=== PATIENT | male | born 1990 | race African-American/Black ===

== ENCOUNTER 2018-12-08 01:39 | Inpatient (IN) | payer BC ==
--- NOTE | 2018-12-08 02:10 | ED ---
Altered Mental Status - HPI Summary HPI Summary: A 28 y/o male brought in by [facility] presents to [facility] with a chief complaint of hyponatremia and AMS today. 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 He says that this is the second time he could not keep his sodium level up. He says that he has not had this happen to him before this week , but it was reported that he had this happen 3 times this week. He reports EtOH use occasionally. He claims that he has been pretty healthy up until this happened. - History Of Current Complaint Chief Complaint: EDGeneral Stated Complaint: GENERAL ILLNESS PER EMS Time Seen by Provider: 12/08/18 01:44 Hx Obtained From: Patient, EMS Onset/Duration: Still Present Timing: Intermittent, Lasting Days Severity Initially: Mild Severity Currently: Mild Character: Confusion Aggravating Factor(s): Nothing Alleviating Factor(s): Nothing Associated Signs And Symptoms: Negative: Fever - Allergies/Home Medications Allergies/Adverse Reactions: Allergies Allergy/AdvReac Type Severity Reaction Status Date / Time peanut Allergy Severe Swelling Verified 12/08/18 03:46 Of Face,Lips,& Throat Home Medications: Home Medications NK [No Home Medications Reported] 12/08/18 [History Confirmed 12/08/18] PMH/Surg Hx/FS Hx/Imm Hx Infectious Disease History: No Infectious Disease History: Denies: Traveled Outside the [place] in Last 30 Days Review of Systems Negative: Fever Neurological: Other - positive: AMS All Other Systems Reviewed And Are Negative: Yes Physical Exam - Summary Physical Exam Summary: Constitutional: Well-developed, Well-nourished, Alert. (-) Distressed Skin: Warm, Dry HENT: Normocephalic; Atraumatic Eyes: Conjunctiva normal Neck: Musculoskeletal ROM normal neck. (-) JVD, (-) Stridor, (-) Tracheal deviation Cardio: Rhythm regular, rate normal, Heart sounds normal; Intact distal pulses; The pedal pulses are 2+ and symmetric. Radial pulses are 2+ and symmetric. (-) Murmur Pulmonary/Chest wall: Effort normal. (-) Respiratory distress, (-) Wheezes, (-) Rales Abd: Soft, (-) tenderness, (-) Distension, (-) Guarding, (-) Rebound Musculoskeletal: (-) Edema, some abrasions and contusions but no obvious deformities Lymph: (-) Cervical adenopathy Neuro: Sedated, conversive when arousable Psych: Mood and affect Normal Triage Information Reviewed: Yes Vital Signs On Initial Exam: Initial Vitals Temp Pulse Resp BP Pulse Ox 98.6 F 86 16 129/71 99 12/08/18 01:41 12/08/18 01:41 12/08/18 01:41 12/08/18 01:41 12/08/18 01:41 Vital Signs Reviewed: Yes Diagnostics - Vital Signs Vital Signs Temp Pulse Resp BP Pulse Ox 12/08/18 01:41 98.6 F 86 16 129/71 99 - Laboratory Result Diagrams: 12/08/18 06:28 12/08/18 06:28 Lab Statement: Any lab studies that have been ordered have been reviewed, and results considered in the medical decision making process. - EKG 01:41 Cardiac Rate: NL - 89 bpm EKG Rhythm: Sinus Rhythm Summary of EKG Findings: Normal sinus rhythm at 89 bpm, prolonged IL with 1st degree AV block, ST elevated V1 V2 V3 and V4, normal early repolarization. Altered Mental Statu Course/Dx - Course Course Of Treatment: A 28 y/o male brought in by [facility] presents to [facility] with a chief complaint of hyponatremia and AMS today. The physical exam revealed some abrasions and contusions but no obvious deformities,. Sedated, conversive when arousable. Chemistries, urines and toxicology obtained. Sodium of 120 at 01:59. EKG at 01:41 showed Normal sinus rhythm at 89 bpm, prolonged IL with 1st degree AV block, ST elevated V1 V2 V3 and V4, normal early repolarization. Discussed case with Dr. Gardner, hospitalist, who accepted the patient for admisison. The patient is agreeable with this plan. - Diagnoses Provider Diagnoses: Altered mental status, Hyponatremia - Provider Notifications Discussed Care Of Patient With: Ramesh Gardner Time Discussed With Above Provider: 04:25 Instructed by Provider To: Admit As Inpatient Discharge - Sign-Out/Discharge Documenting (check all that apply): Patient Departure - admit Patient Received Moderate/Deep Sedation with Procedure: No - Discharge Plan Condition: Fair Disposition: ADMITTED TO [facility] - Billing Disposition and Condition Condition: FAIR Disposition: Admitted to [facility] - Attestation Statements Document Initiated by Scribe: Yes Documenting Scribe: Michel Gonzalez Provider For Whom Scribe is Documenting (Include Credential): Mamie Munoz MD Scribe Attestation: I, Michel Gonzalez, scribed for Mamie Byrnes MD on 12/08/18 at 0750. Scribe Documentation Reviewed: Yes Provider Attestation: The documentation as recorded by the Michel laguna accurately reflects the service I personally performed and the decisions made by me, Mamie Byrnes MD Status of Scribe Document: Viewed
[2018-12-08 02:33] LABS: ALT 72 U/L (7-52); AST 134 U/L (13-39); Albumin 4.2 g/dL (3.2-5.2); Albumin/Globulin Ratio 1.2 (1-3); Alkaline Phosphatase 51 U/L (34-104); Anion Gap 8 mmol/L (2-11); BUN/Creatinine Ratio 13.7 (8-20); Blood Urea Nitrogen 10 mg/dL (6-24); CO2 Carbon Dioxide 25 mmol/L (22-32); Calcium 8.3 mg/dL (8.6-10.3); Chloride 87 mmol/L (101-111); EGFR African American 157.1 (>60); EGFR Non-African American 129.9 (>60); Globulin 3.5 g/dL (2-4); Glucose 127 mg/dL (70-100); Potassium 4.8 mmol/L (3.5-5.0); Sodium 120 mmol/L (135-145); Total Protein 7.7 g/dL (6.4-8.9)
[2018-12-08 03:37] LABS: Creatine Kinase 5393 U/L (10-223)
[2018-12-08 03:51] LABS: Urine Potassium Concentration 68.8 mmol/L
[2018-12-08 04:00] LABS: Alcohol < 10 mg/dL (<10)
[2018-12-08 04:15] LABS: TSH (Thyroid Stimulating Horm) 0.39 mcIU/mL (0.34-5.60)
[2018-12-08] MEDS ORDERED: NS 0.9% 1000 ML** 1,000 ML IV SCH (05:30)
[2018-12-08] MEDS ORDERED: Ondansetron INJ* 2 MG/ML VIAL IV PRN (07:04)
[2018-12-08 07:22] LABS: HDL Cholesterol 67.4 mg/dL
[2018-12-08 07:28] LABS: ABS Lymphocytes 0.8 10^3/ul (1.0-4.8); ABS Monocytes 1.1 10^3/ul (0-0.8); Hematocrit 36 % (42-52); Hemoglobin 12.5 g/dL (14.0-18.0); Lymphocyte % 7.6 %; Mean Corpuscular HGB Conc 34 g/dL (31-36); Mean Corpuscular Hemoglobin 30 pg (27-31); Mean Corpuscular Volume 88 fL (80-94); Mean Platelet Volume 8.9 fL (7.4-10.4); Platelet Count 192 10^3/uL (150-450); Red Blood Count 4.16 10^6 /uL (4.18-5.48); Red Cell Distribution Width 12 % (10-15); White Blood Count 11.1 10^3/uL (3.5-10.8)
[2018-12-08 07:45] LABS: Anion Gap 10 mmol/L (2-11); BUN/Creatinine Ratio 11.6 (8-20); Blood Urea Nitrogen 8 mg/dL (6-24); CO2 Carbon Dioxide 23 mmol/L (22-32); Chloride 89 mmol/L (101-111); EGFR African American 167.7 (>60); EGFR Non-African American 138.6 (>60); Glucose 108 mg/dL (70-100); Potassium 4.3 mmol/L (3.5-5.0); Sodium 122 mmol/L (135-145)
[2018-12-08 08:15] LABS: Troponin I 0.01 ng/mL (<0.04)
--- NOTE | 2018-12-08 08:16 | HP ---
AMENDED REPORT NOW INCLUDES DATE OF ADMISSION ADMISSION HISTORY AND PHYSICAL: DATE OF ADMISSION: 12/08/18 CHIEF COMPLAINT: Altered mental status. HISTORY OF PRESENT ILLNESS: This is a 28-year-old male sent from [facility] for altered mental status and low sodium. The patient himself was sedated during my evaluation, so history was obtained by reviewing chart. Chart review suggests that the patient was brought from the [facility] with agitation and cramping and nausea and was disoriented, and he was moving around the bed having difficulty, at which point at [facility] they performed some labs and was noted to have hyponatremia. It is unclear, but the patient was given 2 mg dose of IV lorazepam and 2 times diazepam 5 mg IV with a total of 10 mg IV diazepam. After the labs showed the patient's sodium being low, the patient was sent to [facility] for further evaluation and treatment and correction of his sodium. According to records, this is his third time presenting with low sodium of 120, which they were unable to correct. PAST MEDICAL HISTORY: None documented. PAST SURGICAL HISTORY: None documented. HOME MEDICATIONS: There are no documented home medications. ALLERGIES: The patient is allergic to peanuts, which cause severe swelling of his face, lips, and throat. FAMILY HISTORY: Unable to obtain at this point. SOCIAL HISTORY: It is documented that the patient is a nonsmoker, only drinks alcohol occasionally and never uses any drugs. REVIEW OF SYSTEMS: Unable to obtain due to his mental status. PHYSICAL EXAMINATION GENERAL: The patient is arousable to painful stimuli and was requesting his Wright to be removed, but then he would immediately go back to sleep and would not talk further. The patient is arousable to deep palpation, but quickly goes back to sleep. He is oriented to person and thinks that we are at the end of October, but unable to determine where he was. VITAL SIGNS: In the ER, BP 119/65, heart rate 87, respiratory rate 14, saturating 97% on room air. HEAD AND NECK: Atraumatic and normocephalic. Bilateral pupils are reactive. Oral mucosa was dry. NECK: Supple. No jugular venous distention. LUNGS: Clear to auscultation bilaterally. No wheezing, rhonchi, or rales. HEART: S1 and S2. Regular rate and rhythm. ABDOMEN: Soft, nontender, and nondistended. EXTREMITIES: No cyanosis, clubbing, or edema. NEUROLOGIC: The patient was moving all 4 extremities with painful stimuli, suggesting he has 5/5 strength and good sensation. LABORATORY DATA: The patient had low sodium of 120, chloride also decreased at 87, glucose minimally elevated at 127. Serum osmolality was also low at 267. AST was elevated at 134, ALT elevated at 72, total creatine kinase was noted to be elevated at 5393. Urinalysis shows urine osmolality of 615 and urine sodium of 94. Serum alcohol level was undetectable. EKG shows sinus rhythm at 89 beats per minute with tall T waves; however, the patient's potassium was still noted to be within normal limits. IMPRESSION AND PLAN: This is a 28-year-old gentleman who came in with altered mental status, was noted to have low sodium of 120 of unclear etiology and also noted to have elevated CPK suggestive of rhabdomyolysis. 1. Altered mental status, unclear etiology. Although the current mentation difference might be related to the heavy dose of Ativan and diazepam that was given prior to transfer to [facility]. We will wait and see how the patient reacts after hydration. For now just start neuro checks. The CT head from [facility] was normal. 2. Hyponatremia, likely osmolar hyponatremia. 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 On top of that, the patient might be having increased free water intake to replace his dehydrated state from training. For now, we will start the patient on IV hydration and serial BMP evaluation. Urine electrolytes show elevated sodium, but this could be deranged as the patient did receive IV fluid hydration prior to being sent to [facility]. If his sodium does not improve, we will consider consulting nephrology for further input. 3. Rhabdomyolysis with elevated total creatine kinase, likely secondary to his training. This could also be contributing to AST, ALT elevation. For now, we will continue the IV hydration and serial CPK monitoring on a daily basis to check resolution of his rhabdomyolysis to prevent any renal injury. 4. Elevated random glucose, unclear etiology. We will check an A1c level. 5. DVT prophylaxis with sequential compression device. [id number]/[facility] #: [id number] [facility]
[2018-12-08 08:21] LABS: Phosphorus 2.8 mg/dL (2.5-5.0)
[2018-12-08 08:55] LABS: Urine Appearance Cloudy; Urine Bacteria Absent (Absent); Urine Bilirubin Negative (Negative); Urine Blood 3+ (Negative); Urine Color Straw; Urine Glucose Negative (Negative); Urine Ketones 2+ (Negative); Urine Nitrite Negative (Negative); Urine Protein Negative (Negative); Urine Red Blood Cell 3+(>10/hpf) (Absent); Urine Specific Gravity 1.009 (1.010-1.030); Urine Urobilinogen Negative (Negative); Urine White Blood Cell Trace(0-5/hpf) (Absent)
[2018-12-08 09:06] LABS: Urine Benzodiazepine Screen Presumptive Positive (None Detect); Urine Opiates Screen None Detected (None Detect)
--- NOTE | 2018-12-08 10:52 | CONSULT ---
Date of Service: 12/08/18 Critical Care Services: HPI: Asked by Dr. White to see regarding encephalopathy and rhabdo in the setting of hyponatremia. The history is obtained from the chart. 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 On this occasion he again was drinking large volumes of water, enough to be urinating every 20 minutes by report, and had had some gatorade but disproportionately less than the volume of water being consumed. He was foudn to be very anxious at [facility] and given a total of 10 mg Valium and 5mg Ativan. He remains somnolent but arousable this AM. Currently making 500cc/hr UO. PMH - Hyponatremia as above, family denied diabetes when spoken to by [facility] provider. Medications - none reported Allergies to Peanuts causing anaphylaxis SH - not known to be a smoker or drinker or use drugs but I cannot interview him adequately at this time. FH - non-contributory per the record ROS - unobtainable Vital Signs: Temp Pulse Resp BP SpO2 FiO2 37.6 C 80 27 93/64 97 12/08/18 07:29 12/08/18 08:15 12/08/18 08:15 12/08/18 08:15 12/08/18 08:15 Physical Exam: Gen: healthy -appearing, well muscled, lethargic but rousable. HEENT: NCAT, PERRL Lungs: Clear Cardiac: S1S2 regular Abdomen: soft, NT, ND, +BS Extremities: moves all 4's, compartments soft LE and UE bilaterally. Neuro: rouses and seems grossly motor intact but lethargy limits exam. Fluid Balance (Past 24 Hours): I= O= Net Intake & Output 12/06/18 12/07/18 12/08/18 12/09/18 06:59 06:59 06:59 06:59 Intake Total 127 0 Output Total 700 1250 Balance -573 -1250 Weight 95.8 kg Intake: IV Fluids 127 NS 127 Oral 0 Output: Wright 700 1250 Labs: Laboratory Results - last 24 hr 12/08/18 12/08/18 12/08/18 01:59 01:59 03:31 WBC RBC Hgb Hct MCV MCH MCHC RDW Plt Count MPV Neut % (Auto) Lymph % (Auto) [place] % (Auto) Eos % (Auto) Baso % (Auto) Absolute Neuts (auto) Absolute Lymphs (auto) Absolute Monos (auto) Absolute Eos (auto) Absolute Basos (auto) Absolute Nucleated RBC Nucleated RBC % Sodium 120 L Potassium 4.8 Chloride 87 L Carbon Dioxide 25 Anion Gap 8 BUN 10 Creatinine 0.73 Est GFR ( Amer) 157.1 Est GFR (Non-Af Amer) 129.9 BUN/Creatinine Ratio 13.7 Glucose 127 H Hemoglobin A1c Serum Osmolality 262 L Calcium 8.3 L Phosphorus Total Bilirubin 1.10 H AST 134 H ALT 72 H Alkaline Phosphatase 51 Total Creatine Kinase 5393 H Troponin I Total Protein 7.7 Albumin 4.2 Globulin 3.5 Albumin/Globulin Ratio 1.2 Triglycerides Cholesterol LDL Cholesterol HDL Cholesterol TSH 0.39 Cortisol Urine Color Urine Appearance Urine pH Ur Specific Inverness Urine Protein Urine Ketones Urine Blood Urine Nitrate Urine Bilirubin Urine Urobilinogen Ur Leukocyte Esterase Urine WBC (Auto) Urine RBC (Auto) Urine Bacteria Urine Osmolality 615 U Sodium Concentration Urine Potassium Ur Chloride Concentrat Urine Glucose Urine Opiates Screen Ur Barbiturates Screen Ur Phencyclidine Scrn Ur Amphetamines Screen U Benzodiazepines Scrn Urine Cocaine Screen U Cannabinoids Screen Serum Alcohol < 10 12/08/18 12/08/18 12/08/18 03:31 06:02 06:02 WBC RBC Hgb Hct MCV MCH MCHC RDW Plt Count MPV Neut % (Auto) Lymph % (Auto) [place] % (Auto) Eos % (Auto) Baso % (Auto) Absolute Neuts (auto) Absolute Lymphs (auto) Absolute Monos (auto) Absolute Eos (auto) Absolute Basos (auto) Absolute Nucleated RBC Nucleated RBC % Sodium Potassium Chloride Carbon Dioxide Anion Gap BUN Creatinine Est GFR ( Amer) Est GFR (Non-Af Amer) BUN/Creatinine Ratio Glucose Hemoglobin A1c 5.5 Serum Osmolality Calcium Phosphorus Total Bilirubin AST ALT Alkaline Phosphatase Total Creatine Kinase 4884 H Troponin I Total Protein Albumin Globulin Albumin/Globulin Ratio Triglycerides 22 Cholesterol 121 LDL Cholesterol 49 HDL Cholesterol 67.4 TSH Cortisol Urine Color Urine Appearance Urine pH Ur Specific Inverness Urine Protein Urine Ketones Urine Blood Urine Nitrate Urine Bilirubin Urine Urobilinogen Ur Leukocyte Esterase Urine WBC (Auto) Urine RBC (Auto) Urine Bacteria Urine Osmolality U Sodium Concentration 94 Urine Potassium 68.8 Ur Chloride Concentrat 72 Urine Glucose Urine Opiates Screen Ur Barbiturates Screen Ur Phencyclidine Scrn Ur Amphetamines Screen U Benzodiazepines Scrn Urine Cocaine Screen U Cannabinoids Screen Serum Alcohol 12/08/18 12/08/18 12/08/18 06:28 06:28 08:00 WBC 11.1 H RBC 4.16 L Hgb 12.5 L Hct 36 L MCV 88 MCH 30 MCHC 34 RDW 12 Plt Count 192 MPV 8.9 Neut % (Auto) 81.8 Lymph % (Auto) 7.6 Treutlen % (Auto) 10.3 Eos % (Auto) 0.0 Baso % (Auto) 0.3 Absolute Neuts (auto) 9.0 H Absolute Lymphs (auto) 0.8 L Absolute Monos (auto) 1.1 H Absolute Eos (auto) 0.0 Absolute Basos (auto) 0.0 Absolute Nucleated RBC 0.0 Nucleated RBC % 0.0 Sodium 122 L Potassium 4.3 Chloride 89 L Carbon Dioxide 23 Anion Gap 10 BUN 8 Creatinine 0.69 Est GFR ( Amer) 167.7 Est GFR (Non-Af Amer) 138.6 BUN/Creatinine Ratio 11.6 Glucose 108 H Hemoglobin A1c Serum Osmolality Calcium 8.0 L Phosphorus 2.8 Total Bilirubin AST ALT Alkaline Phosphatase Total Creatine Kinase Troponin I 0.01 Total Protein Albumin Globulin Albumin/Globulin Ratio Triglycerides Cholesterol LDL Cholesterol HDL Cholesterol TSH Cortisol 23.81 Urine Color Straw Urine Appearance Cloudy Urine pH 7.0 Ur Specific Inver[place] 1.009 L Urine Protein Negative Urine Ketones 2+ A Urine Blood 3+ A Urine Nitrate Negative Urine Bilirubin Negative Urine Urobilinogen Negative Ur Leukocyte Esterase Negative Urine WBC (Auto) Trace(0-5/hpf) Urine RBC (Auto) 3+(>10/hpf) A Urine Bacteria Absent Urine Osmolality U Sodium Concentration Urine Potassium Ur Chloride Concentrat Urine Glucose Negative Urine Opiates Screen Ur Barbiturates Screen Ur Phencyclidine Scrn Ur Amphetamines Screen U Benzodiazepines Scrn Urine Cocaine Screen U Cannabinoids Screen Serum Alcohol 12/08/18 08:00 WBC RBC Hgb Hct MCV MCH MCHC RDW Plt Count MPV Neut % (Auto) Lymph % (Auto) Treut[place] % (Auto) Eos % (Auto) Baso % (Auto) Absolute Neuts (auto) Absolute Lymphs (auto) Absolute Monos (auto) Absolute Eos (auto) Absolute Basos (auto) Absolute Nucleated RBC Nucleated RBC % Sodium Potassium Chloride Carbon Dioxide Anion Gap BUN Creatinine Est GFR ( Amer) Est GFR (Non-Af Amer) BUN/Creatinine Ratio Glucose Hemoglobin A1c Serum Osmolality Calcium Phosphorus Total Bilirubin AST ALT Alkaline Phosphatase Total Creatine Kinase Troponin I Total Protein Albumin Globulin Albumin/Globulin Ratio Triglycerides Cholesterol LDL Cholesterol HDL Cholesterol TSH Cortisol Urine Color Urine Appearance Urine pH Ur Specific Inverness Urine Protein Urine Ketones Urine Blood Urine Nitrate Urine Bilirubin Urine Urobilinogen Ur Leukocyte Esterase Urine WBC (Auto) Urine RBC (Auto) Urine Bacteria Urine Osmolality U Sodium Concentration Urine Potassium Ur Chloride Concentrat Urine Glucose Urine Opiates Screen None detected Ur Barbiturates Screen None detected Ur Phencyclidine Scrn None detected Ur Amphetamines Screen None detected U Benzodiazepines Scrn Presumptive positive A Urine Cocaine Screen None detected U Cannabinoids Screen None detected Serum Alcohol Impression: 28 y/o male with hyponatremia from water intoxication, also mild rhabdomyolysis. Plan: Hyponatremia - acute and secondary to water intoxication. Urine lytes confusing as Osmo high and Na/Cl both high but this was in the setting of NS boluses. I doubt he has SIADH but will repeat urine lytes and follow to resolution, Neph consult if things don't line up. We need to reconcile the fact that he is a well-muscled AA male with a BUN of 8 and a CK of 5,000. While the BUN and Na speak to water intoxication the CK raises the question of whether it would have been that much higher had he not been water intoxicated. What his kidneys should be doing is clearing free water if water intoxication is the correct diagnosis. His UO is high now and will recheck the lytes. If looks like DI but is slowing down in the coming hours with good clinical course then that supports the diagnosis of water intoxication. CTH ordered repeat by Dr. White, will follow. 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 This is a life-threatening situation and it has happened twice. It seems to be mostly environmental and behavioral but the CK is also bothersome for someone so heavily water intoxicated. He should have repeat labs including urine lytes and CK as an outpt when at his baseline prior to mecial clearance to return to FF. critical care time 60 minutes
[2018-12-08 11:45] LABS: Calcium 8.3 mg/dL (8.6-10.3); Potassium 4.4 mmol/L (3.5-5.0)
[2018-12-08 11:51] LABS: EGFR African American 157.1 (>60); EGFR Non-African American 129.9 (>60)
--- NOTE | 2018-12-08 11:53 | PN ---
Hospitalist Progress Note Date of Service: 12/08/18 I saw and examined Mr. Jerry early this morning. He was lethargic as noted in Dr. Gardner's note after receiving 10mg of valium at [facility] but did arouse to voice and denied any pain, denied headache, nausea, vomiting, chest pain, muscle aches, just complained of feeling tired. 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 He has been drinking lots of water but cannot quantify it, and some gatorade. His sodium was improving so far and his neuro exam is unremarkable other than lethargy--he follows commands, names objects, strength is 5/5, DTRs are 2+, no nystagmus, coordination is in tact. I ordered a CT head because I was concerned about swelling. I added on an am cortisol. I would expect his urine sodium to be low if this were related to water intoxication. I consulted Dr. Delacruz because his symptoms seem out of proportion to his labs (ie. agitation requiring 10mg of valium at [facility]), and his urine lytes also do not coincide with what I would expect from his history.
[2018-12-08 12:54] LABS: Urine Chloride Concentration < 22 mmol/L; Urine Potassium Concentration < 3.0 mmol/L; Urine Sodium Concentration < 18 mmol/L
--- NOTE | 2018-12-08 13:43 | PN ---
Progress Note - Progress Note Date of Service: 12/08/18 Note: CTH negative. A&O and appropriate when roused but still sleeping off the ativan. Repeat lytes show resolving hyponatremia and repeat urine lytes consistent with normal renal response to water intoxication.
[2018-12-08 15:01] LABS: BUN/Creatinine Ratio 9.3 (8-20); Calcium 8.6 mg/dL (8.6-10.3); EGFR African American 152.3 (>60); EGFR Non-African American 125.9 (>60); Potassium 4.5 mmol/L (3.5-5.0)
[2018-12-08 18:57] LABS: BUN/Creatinine Ratio 9.9 (8-20); Blood Urea Nitrogen 8 mg/dL (6-24); CO2 Carbon Dioxide 24 mmol/L (22-32); Calcium 9.1 mg/dL (8.6-10.3); Chloride 104 mmol/L (101-111); EGFR African American 139.4 (>60); EGFR Non-African American 115.2 (>60); Glucose 95 mg/dL (70-100); Sodium 134 mmol/L (135-145)
[2018-12-08 19:02] LABS: Anion Gap 6 mmol/L (2-11)
[2018-12-08] MEDS: Acetaminophen TAB* 325 MG PO PRN (19:49)
[2018-12-08 21:40] LABS: BUN/Creatinine Ratio 9.8 (8-20); EGFR African American 120.3 (>60); EGFR Non-African American 99.4 (>60); Potassium 4.8 mmol/L (3.5-5.0)
[2018-12-09 04:57] LABS: Hematocrit 41 % (42-52); Hemoglobin 13.6 g/dL (14.0-18.0); Mean Corpuscular HGB Conc 33 g/dL (31-36); Mean Corpuscular Hemoglobin 30 pg (27-31); Mean Corpuscular Volume 89 fL (80-94); Mean Platelet Volume 8.1 fL (7.4-10.4); Platelet Count 222 10^3/uL (150-450); Red Blood Count 4.58 10^6 /uL (4.18-5.48); Red Cell Distribution Width 13 % (10-15); White Blood Count 11.6 10^3/uL (3.5-10.8)
[2018-12-09 04:59] LABS: ABS Basophils 0.1 10^3/ul (0-0.2); ABS Lymphocytes 1.4 10^3/ul (1.0-4.8); ABS Monocytes 1.7 10^3/ul (0-0.8); ABS Neutrophils 8.4 10^3/ul (1.5-7.7); Eosinophil % 0.1 %; Lymphocyte % 11.9 %
[2018-12-09 05:14] LABS: Calcium 8.9 mg/dL (8.6-10.3); EGFR African American 123.4 (>60); Potassium 4.7 mmol/L (3.5-5.0)
[2018-12-09] MEDS: Acetaminophen TAB* 325 MG PO PRN (07:50)
--- NOTE | 2018-12-09 10:33 | PN ---
Date of Service: 12/09/18 Critical Care Services: Awake and alert OOB self-toileting. No complaints. Vital Signs: Temp Pulse Resp BP SpO2 FiO2 37.5 C 90 16 118/61 98 12/09/18 07:48 12/09/18 09:00 12/09/18 09:00 12/09/18 08:01 12/09/18 09:00 Physical Exam: Gen: OOB in chair. On phone with family. Entirely appropriate. HEENT: NCAT, PERRL Lungs: clear Cardiac: S1S2 regular Abdomen: soft, NT, ND, +BS Extremities: no edema Neuro: A&O, grossly non-focal Fluid Balance (Past 24 Hours): I= O= Net Intake & Output 12/07/18 12/08/18 12/09/18 12/10/18 06:59 06:59 06:59 06:59 Intake Total 127 3038 250 Output Total 700 6350 800 Balance -573 -3312 -550 Weight 95.8 kg 82.645 kg Intake: IV Fluids 127 1187 NS 127 1187 IVPB 1236 NS 1236 Oral 615 250 Output: Urine 1000 800 Wright 700 5350 Other: Date of Last Bowel unknown Movement # Voids 0 Labs: Laboratory Results - last 24 hr 12/08/18 12/08/18 12/08/18 10:00 10:00 11:46 WBC RBC Hgb Hct MCV MCH MCHC RDW Plt Count MPV Neut % (Auto) Lymph % (Auto) [place]inn % (Auto) Eos % (Auto) Baso % (Auto) Absolute Neuts (auto) Absolute Lymphs (auto) Absolute Monos (auto) Absolute Eos (auto) Absolute Basos (auto) Absolute Nucleated RBC Nucleated RBC % Sodium 125 L Potassium 4.4 Chloride 94 L Carbon Dioxide 23 Anion Gap 8 BUN 8 Creatinine 0.73 Est GFR ( Amer) 157.1 Est GFR (Non-Af Amer) 129.9 BUN/Creatinine Ratio 11.0 Glucose 98 Calcium 8.3 L Total Creatine Kinase Urine Osmolality U Sodium Concentration < 18 Urine Potassium < 3.0 Ur Chloride Concentrat < 22 Lyme Total Antibody Negative 12/08/18 12/08/18 12/08/18 11:46 14:02 18:15 WBC RBC Hgb Hct MCV MCH MCHC RDW Plt Count MPV Neut % (Auto) Lymph % (Auto) Linn % (Auto) Eos % (Auto) Baso % (Auto) Absolute Neuts (auto) Absolute Lymphs (auto) Absolute Monos (auto) Absolute Eos (auto) Absolute Basos (auto) Absolute Nucleated RBC Nucleated RBC % Sodium 133 L D 134 L Potassium 4.5 TNP Chloride 101 104 Carbon Dioxide 22 24 Anion Gap 10 6 BUN 7 8 Creatinine 0.75 0.81 Est GFR ( Amer) 152.3 139.4 Est GFR (Non-Af Amer) 125.9 115.2 BUN/Creatinine Ratio 9.3 9.9 Glucose 90 95 Calcium 8.6 9.1 Total Creatine Kinase Urine Osmolality < 100 L U Sodium Concentration Urine Potassium Ur Chloride Concentrat [place]yme Total Antibody 12/08/18 12/08/18 12/09/18 19:35 21:14 04:48 WBC RBC Hgb Hct MCV MCH MCHC RDW Plt Count MPV Neut % (Auto) Lymph % (Auto) Linn % (Auto) Eos % (Auto) Baso % (Auto) Absolute Neuts (auto) Absolute Lymphs (auto) Absolute Monos (auto) Absolute Eos (auto) Absolute Basos (auto) Absolute Nucleated RBC Nucleated RBC % Sodium 134 L 134 L Potassium 4.8 4.8 4.7 Chloride 105 105 Carbon Dioxide 24 23 Anion Gap 5 6 BUN 9 9 Creatinine 0.92 0.90 Est GFR ( Amer) 120.3 123.4 Est GFR (Non-Af Amer) 99.4 102.0 BUN/Creatinine Ratio 9.8 10.0 Glucose 120 H 94 Calcium 9.0 8.9 Total Creatine Kinase 1833 H Urine Osmolality U Sodium Concentration Urine Potassium Ur Chloride Concentrat [place]yme Total Antibody 12/09/18 04:48 WBC 11.6 H RBC 4.58 Hgb 13.6 L Hct 41 L MCV 89 MCH 30 MCHC 33 RDW 13 Plt Count 222 MPV 8.1 Neut % (Auto) 72.5 Lymph % (Auto) 11.9 Linn % (Auto) 15.0 Eos % (Auto) 0.1 Baso % (Auto) 0.5 Absolute Neuts (auto) 8.4 H Absolute Lymphs (auto) 1.4 Absolute Monos (auto) 1.7 H Absolute Eos (auto) 0.0 Absolute Basos (auto) 0.1 Absolute Nucleated RBC 0.0 Nucleated RBC % 0.0 Sodium Potassium Chloride Carbon Dioxide Anion Gap BUN Creatinine Est GFR ( Amer) Est GFR (Non-Af Amer) BUN/Creatinine Ratio Glucose Calcium Total Creatine Kinase Urine Osmolality U Sodium Concentration Urine Potassium Ur Chloride Concentrat Lyme Total Antibody Nutrition: Regular diet Impression: Hyponatremia secondary to water intoxication resolving. Plan: Hyponatremia - acute auto correction for acute hyponatremia, doing well. Neurologically intact. We discussed the water intake and he clearly provides history of excessive water, followed by cramps, which he treated with water. Very little gatorade. 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 I also reinforced that he needs outpt lab draws when back at his baseline and potentially workup for subtle electrolyte abnormalities that may magnify. Absent an organic cause, behavioral modification should fix the problem. Please call with questions.
[2018-12-09 12:16] VITALS: BP 110/61
--- NOTE | 2018-12-09 19:10 | DS ---
CC: Dr. Rosales Valdez at [facility] * DISCHARGE SUMMARY: DATE OF ADMISSION: 12/08/18 DATE OF DISCHARGE: 12/09/18 PRINCIPAL DISCHARGE DIAGNOSES: 1. Hyponatremia. 2. Water intoxication. 3. Rhabdomyolysis. PHYSICAL EXAM AT DISCHARGE: Temperature 98.7, heart rate 55, respiratory rate 16, pulse ox 97% on room air, blood pressure 110/61. General: Alert, well appearing young man in no distress, resting comfortably in bed. HEENT: Pupils 3 mm bilaterally reactive to light. Oral mucosa is moist. No pharyngeal exudates or erythema. Neck; No JVP or adenopathy. Chest: Regular rate and rhythm. No murmurs. Lungs: Clear bilaterally. Abdomen: Soft, nontender, nondistended. No guarding or rebound. No CVA tenderness. Extremities: No edema, rashes, or ulcers. Neurologic: He is oriented x3. He is pleasant. He has a blunted affect. His strength is 5/5 in all extremities. He has no myalgias or arthralgias. No nystagmus. Strength is 5/5 in all extremities and deep tendon reflexes are 2+ bilaterally. MEDICATION AT DISCHARGE: None. HOSPITAL COURSE: Mr. Jerry is a 28-year-old male with no medical history who presented to the emergency department with altered mental status and polyuria. 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 He has been unable to quantify the volumes of water that he has been drinking, however, states that he has been exercising from 6 a.m. to 9 p.m. and drinking only water, so much water that he has been urinating every 20 minutes. In [facility], he was found to have a low sodium and was transferred to [facility] for further evaluation and frequent blood draw. He is admitted to our ICU. The ICU doctor was consulted and recommended rapid sodium replacement. His urine osmolality was less than 100. Urine sodium was less than 18 consistent with a hypoosmolar, hypotonic, hyponatremia and he improved quickly with normal saline. His mental status is appropriate and pleasant. His neurologic exam is unremarkable at the time of discharge. His morning cortisone was 23.8 and his TSH was 0.39. Regarding his rhabdomyolysis, his total CK at presentation was 5000. He had positive urine blood and no RBCs consistent with rhabdomyolysis and he was hydrated then it decreased to 1800 at the time of discharge. He was instructed to maintain hydration with Gatorade. 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 CONDITION ON THE TIME OF DISCHARGE: Stable. DISPOSITION: Mr. Jerry is discharged with his father on 12/09/18. He has a primary care provider in [place], and I instructed him to follow up with her, however, I also gave him my office number and suggested that he call to followup before he returns to [place] at the end of this month. [id number]/[facility] #: [id number] MTDErmias
--- NOTE | 2019-01-19 20:21 | DS ---
DISCHARGE SUMMARY: ADDENDUM: DISPOSITION: Mr. Jerry was discharged to home. [id number]/[facility] #: [id number] MTDD
== END 2018-12-09 20:45 | disposition home or self-care (01) | DRG 641 ==
LOC: ED 01:39 → ICU 05:29
PROVIDERS: ADMIT Internal Medicine; ATTEND Internal Medicine
DX: E87.1 Hypo-osmolality and hyponatremia (principal); M62.82 Rhabdomyolysis; G93.49 Other encephalopathy; E87.79 Other fluid overload; Z91.010 Allergy to peanuts; Z72.89 Other problems related to lifestyle
CPT/HCPCS: 36415; 70450; 80048; 80053; 80061; 80307; 80320; 81003; 81015; 82436; 82533; 82550; 83036; 83930; 83935; 84100; 84133; 84300; 84443; 84484; 85025; 86618; 87086; 87641; 93005; 99285; A9270-GY; G0480